=== PATIENT | female | born 1950 | race Caucasian/White ===

== ENCOUNTER → 2017-05-04 | Outpatient (REF) | payer MEDICARE, OTHER | LOC: M LAB REF 16:07 | PROVIDERS: ATTEND Internal Medicine | DX: K57.11 Diverticulosis of small intestine without perforation or abscess with bleeding (principal); D72.9 Disorder of white blood cells, unspecified ==

== ENCOUNTER → 2019-04-25 | Outpatient (REF) | payer MEDICARE, OTHER ==
[2019-04-25 18:05] LABS: PERCENT SATURATION 26.5 % (13.2-45.0)
[2019-04-27 14:10] LABS: ANTINUCLEAR ANTIBODIES DIRECT Negative (Negative)
== END ==
LOC: M LAB REF 16:55
PROVIDERS: ATTEND Internal Medicine
DX: L66.8 Other cicatricial alopecia (principal)

== ENCOUNTER → 2021-03-13 | Outpatient (CLI) | payer MEDICARE, OTHER ==
--- NOTE | 2021-03-13 14:29 | REP ---
INDICATION: Assess stenosis COMPARISON: 05/07/2009 TECHNIQUE: Carotid ultrasonography was performed bilaterally FINDINGS: A moderate amount of patchy echogenic material is seen along the carotid arterial rodriguez bilaterally. Right: CCA systolic: 76.4 centimeters/second CCA diastolic: 14.3 centimeters/second ICA systolic: 78.8 centimeters/second ICA diastolic: 22.0 centimeters/second ICA CCA ratio: 1.03 Left: CCA systolic: 89.5 centimeters/second CCA diastolic: 18.1 centimeters/second ICA systolic: 95.5 centimeters/second ICA diastolic: 22.0 centimeters/second ICA CCA ratio: 1.67 Vertebral artery: Right: Antegrade left: Antegrade IMPRESSION: According to the SRU criteria there is less than 50% stenosis of the internal carotid artery bilaterally. <Electronically signed by Jericho Roque > 03/13/21 1735
== END ==
LOC: M RAD 13:37
PROVIDERS: ATTEND Internal Medicine
DX: I65.23 Occlusion and stenosis of bilateral carotid arteries (principal)

== ENCOUNTER 2021-12-24 12:39 | Emergency (ER) | payer MEDICARE, OTHER ==
[~2021-12-24] VITALS: Ht 157.5 cm; Wt 73.2 kg
[2021-12-24] MEDS ORDERED: CAND32TA (12:49)
[2021-12-24] MEDS ORDERED: EZET1TAB96 (12:49)
[2021-12-24 15:15] VITALS: BP 180/79
[2021-12-24 16:52] LABS: BASO # 0.1 10^3/uL (0.0-0.2); BASO % 0.9 % (0.0-1.0); EOS % 0.1 % (0.0-3.0); HEMATOCRIT 37.4 % (36.0-47.0); HEMOGLOBIN 11.9 g/dl (12.0-15.5); LYMPH # 2.4 10^3/uL (1.5-5.0); LYMPH % 27.6 % (24.0-44.0); MEAN CORPUSCULAR HEMOGLOBIN 28.2 pg (27.0-33.0); MEAN CORPUSCULAR HGB CONC 31.8 g/dl (32.0-36.5); MEAN CORPUSCULAR VOLUME 88.6 fl (80.0-96.0); MONO # 0.6 10^3/uL (0.0-0.8); MONO % 6.4 % (2.0-8.0); NEUTROPHILS # 5.6 10^3/uL (1.5-8.5); NEUTROPHILS % 64.8 % (36.0-66.0); PLATELET COUNT, AUTOMATED 252 10^3/uL (150-450); RED BLOOD COUNT 4.22 10^6/uL (4.00-5.40); WHITE BLOOD COUNT 8.7 10^3/uL (4.0-10.0)
[2021-12-24 17:18] LABS: ALT/SGPT 22 U/L (12-78); BILIRUBIN,DIRECT < 0.1 MG/DL (0.0-0.2); BILIRUBIN,TOTAL 0.3 MG/DL (0.2-1.0); TOTAL PROTEIN 7.1 GM/DL (6.4-8.2)
[2021-12-24] MEDS ORDERED: amLODIPine 5 MG TAB PO ONE (17:30)
[2021-12-24 17:52] VITALS: BP 192/88
[2021-12-24] MEDS ORDERED: AMLO1TAB24 PO (19:04)
== END 2021-12-24 18:45 | disposition home or self-care (01) ==
LOC: M ED 12:39
DX: R04.0 Epistaxis (principal); I10 Essential (primary) hypertension; E78.5 Hyperlipidemia, unspecified

== ENCOUNTER → 2022-01-20 | Outpatient (REF) | payer MEDICARE, OTHER ==
[~2022-01-20] MED LIST: AMLO1TAB24 PO; CAND32TA; EZET1TAB96
== END ==
LOC: M LAB REF 12:03
PROVIDERS: ATTEND Internal Medicine
DX: I10 Essential (primary) hypertension (principal)

== ENCOUNTER → 2022-04-29 | Outpatient (CLI) | payer MEDICARE, OTHER ==
[~2022-04-29] MED LIST changes: -CAND32TA; +CAND32TA2
== END ==
LOC: M SLEEP HO 11:44
PROVIDERS: ATTEND Family Medicine
DX: G47.33 Obstructive sleep apnea (adult) (pediatric) (principal)

== ENCOUNTER → 2022-05-07 | Outpatient (REF) | payer MEDICARE, OTHER ==
[2022-05-10 13:08] LABS: PERCENT SATURATION 18.3 % (13.2-45.0)
== END ==
LOC: M LAB REF 12:24
PROVIDERS: ATTEND Internal Medicine
DX: D64.9 Anemia, unspecified (principal)

== ENCOUNTER 2022-07-12 20:24 | Inpatient (IN) | payer MEDICARE, OTHER ==
[~2022-07-12] VITALS: Ht 157.5 cm; Wt 74.5 kg
[2022-07-12] MEDS ORDERED: NS 1,000 ML IV ONE (20:45)
[2022-07-12 20:55] LABS: BASO % 0.3 % (0.0-1.0); EOS # 0.1 10^3/uL (0.0-0.5); EOS % 2.1 % (0.0-3.0); HEMATOCRIT 38.3 % (36.0-47.0); HEMOGLOBIN 13.6 g/dl (12.0-15.5); LYMPH # 0.9 10^3/uL (1.5-5.0); MEAN CORPUSCULAR HEMOGLOBIN 29.1 pg (27.0-33.0); MEAN CORPUSCULAR HGB CONC 35.5 g/dl (32.0-36.5); MONO # 0.9 10^3/uL (0.0-0.8); MONO % 13.4 % (2.0-8.0); NEUTROPHILS # 4.7 10^3/uL (1.5-8.5); NEUTROPHILS % 70.2 % (36.0-66.0); PLATELET COUNT, AUTOMATED 252 10^3/uL (150-450); RED BLOOD COUNT 4.67 10^6/uL (4.00-5.40); WHITE BLOOD COUNT 6.7 10^3/uL (4.0-10.0)
[2022-07-12 20:57] LABS: VENOUS BASE EXCESS 1.6 (-2.0-2.0); VENOUS HCO3 25.4 MEQ/L (23.0-27.0); VENOUS O2 SATURATION 95.5 % (60.0-80.0); VENOUS PARTIAL PRESSURE CO2 37.2 mmHg (38.0-50.0); VENOUS PARTIAL PRESSURE O2 77.2 mmHg (30.0-50.0); VENOUS PH 7.452 UNITS (7.330-7.430); VENOUS STANDARD HCO3 25.9 MEQ/L; VENOUS TOTAL CO2 26.5 MEQ/L (24.0-28.0)
[2022-07-12 21:41] LABS: MB/CK RELATIVE INDEX 2.82 (< OR =4)
[2022-07-12 21:54] LABS: BLOOD UREA NITROGEN 14 MG/DL (7-18); CALCIUM LEVEL 9.4 MG/DL (8.8-10.2); CARBON DIOXIDE LEVEL 24 MEQ/L (21-32); CHLORIDE LEVEL 81 MEQ/L (98-107); CREATININE FOR GFR 0.79 MG/DL (0.55-1.30); GLOMERULAR FILTRATION RATE > 60.0 (>39); GLUCOSE, FASTING 150 MG/DL (70-100); POTASSIUM SERUM 3.7 MEQ/L (3.5-5.1); SODIUM LEVEL 115 MEQ/L (136-145)
[2022-07-12 23:31] LABS: RSV AMPLIFICATION NEGATIVE (NEGATIVE)
[2022-07-13] VITALS (8 sets, daily range): BP systolic 133–171; BP diastolic 63–84
[2022-07-13 00:03] LABS: CK-MB VALUE MASS 1.6 NG/ML (<3.6); MB/CK RELATIVE INDEX 1.65 (< OR =4)
[2022-07-13] MEDS ORDERED: GLUCOSE 4GM CHEW TABLET PO PRN (02:45)
[2022-07-13] MEDS: ACETAMINOPHEN TAB 650MG DOSE (2X325MG) PO PRN ×2 (02:45→12:18)
[2022-07-13] MEDS ORDERED: NS 1,000 ML IV SCH (02:45)
[2022-07-13] MEDS ORDERED: GLUCAGON INJ 1MG VIAL SC PRN (02:45)
[2022-07-13] MEDS ORDERED: NS 500 ML IV ONE (02:45)
[2022-07-13] MEDS ORDERED: DEXTROSE 50% 50 ML SYRINGE IV PRN (02:45)
[2022-07-13] MEDS ORDERED: hydrALAZINE 20MG/ML 1ML VIAL (J0360 PER 20MG) IV PRN (04:35)
[2022-07-13 04:46] LABS: INR 0.96; PROTHROMBIN TIME 13.2 SECONDS (12.7-14.5)
[2022-07-13 04:47] LABS: PARTIAL THROMBOPLASTIN TIME 32.2 SECONDS (25.9-37.0)
[2022-07-13 04:50] LABS: D-DIMER QUANT 532.71 ng/ml (<500)
[2022-07-13] MEDS ORDERED: **hydrALAZINE** 10 MG TAB PO PRN (04:55)
[2022-07-13 05:18] LABS: ALBUMIN 3.4 GM/DL (3.2-5.2); ALT/SGPT 25 U/L (12-78); BILIRUBIN,DIRECT < 0.1 MG/DL (0.0-0.2); BILIRUBIN,TOTAL 0.2 MG/DL (0.2-1.0); BLOOD UREA NITROGEN 12 MG/DL (7-18); C REACTIVE PROTEIN QUANTITATIV 0.54 MG/DL (0.00-0.30); CALCIUM LEVEL 8.3 MG/DL (8.8-10.2); CARBON DIOXIDE LEVEL 27 MEQ/L (21-32); CHLORIDE LEVEL 85 MEQ/L (98-107); CREATININE FOR GFR 0.57 MG/DL (0.55-1.30); FERRITIN 465 NG/ML (8-252); GLOMERULAR FILTRATION RATE > 60.0 (>39); GLUCOSE, FASTING 114 MG/DL (70-100); LDH LACTATE DEHYDROGENASE 241 U/L (84-246); MAGNESIUM LEVEL 1.8 MG/DL (1.8-2.4); NT-PRO BNP 1495 PG/ML (<125); POTASSIUM SERUM 3.3 MEQ/L (3.5-5.1); SODIUM LEVEL 122 MEQ/L (136-145); TOTAL PROTEIN 6.7 GM/DL (6.4-8.2)
[2022-07-13] MEDS ORDERED: REMDESIVIR 200 MG in NS 250 ML IV ONE (06:30)
[2022-07-13] MEDS ORDERED: CLOB0.057 TOP (06:35)
[2022-07-13] MEDS ORDERED: EZET1TAB96 PO (06:35)
[2022-07-13] MEDS ORDERED: RA T500C2 PO (06:35)
[2022-07-13] MEDS ORDERED: VITA100093 PO (06:35)
[2022-07-13] MEDS ORDERED: CAND32TA2 PO (06:35)
[2022-07-13] MEDS ORDERED: ZINC50TA14 PO (06:35)
[2022-07-13] MEDS ORDERED: VITA500T41 PO (06:35)
[2022-07-13] MEDS ORDERED: HOME MED LIST COMPLETE! XX SCH (06:40)
[2022-07-13] MEDS: INSULIN LISPRO (NovoLOG) PER UNIT SC SCH ×4 (07:30→20:29)
[2022-07-13] MEDS ORDERED: POTASSIUM CHLORIDE 10% LIQ 20 MEQ/15 ML UDC PO ONE (07:45)
[2022-07-13 08:19] LABS: BLOOD UREA NITROGEN 12 MG/DL (7-18); CALCIUM LEVEL 7.9 MG/DL (8.8-10.2); CARBON DIOXIDE LEVEL 24 MEQ/L (21-32); CHLORIDE LEVEL 89 MEQ/L (98-107); CREATININE FOR GFR 0.59 MG/DL (0.55-1.30); GLOMERULAR FILTRATION RATE > 60.0 (>39); GLUCOSE, FASTING 96 MG/DL (70-100); POTASSIUM SERUM 3.3 MEQ/L (3.5-5.1); SODIUM LEVEL 120 MEQ/L (136-145)
[2022-07-13] MEDS ORDERED: SODIUM CHLORIDE 0.9% INJ 10 ML SYR IV ONE (08:30)
[2022-07-13] MEDS ORDERED: BARICITINIB 2MG TABLET (OLUMIANT) FOR EUA PO SCH (09:00)
[2022-07-13 09:41] LABS: OSMOLALITY SERUM 247 MOSM/KG (280-301)
[2022-07-13] MEDS: ENOXAPARIN 40MG/0.4ML SYRINGE (J1650 PER 10MG) SC SCH (09:54)
[2022-07-13] MEDS ORDERED: ALBUTEROL SULFATE 2.5 MG/0.5 ML INH NEB SOLN INH PRN (11:25)
[2022-07-13] MEDS ORDERED: diphenhydrAMINE 50MG/ML VIAL (J1200) IV PRN (11:25)
[2022-07-13] MEDS ORDERED: methylPREDNISolone 125MG 2ML VIAL IV PRN (11:25)
[2022-07-13] MEDS ORDERED: ALBUTEROL 90 MCG/ACT 8GM HFA INHALER INH PRN (11:25)
[2022-07-13] MEDS ORDERED: EPINEPHrine INJ 1 MG/ML 1ML AMP IM PRN (11:25)
[2022-07-13] MEDS: **hydrALAZINE HCL** 25 MG TAB PO SCH ×2 (12:17→16:59)
[2022-07-13 13:06] LABS: BLOOD UREA NITROGEN 11 MG/DL (7-18); CALCIUM LEVEL 8.3 MG/DL (8.8-10.2); CARBON DIOXIDE LEVEL 27 MEQ/L (21-32); CHLORIDE LEVEL 92 MEQ/L (98-107); CREATININE FOR GFR 0.64 MG/DL (0.55-1.30); GLOMERULAR FILTRATION RATE > 60.0 (>39); GLUCOSE, FASTING 106 MG/DL (70-100); POTASSIUM SERUM 3.7 MEQ/L (3.5-5.1); SODIUM LEVEL 126 MEQ/L (136-145)
[2022-07-13 13:27] LABS: CREATININE,RANDOM URINE 22.2 MG/DL
[2022-07-13] MEDS ORDERED: D5W 1000ML IV ONE (13:50)
[2022-07-13] MEDS ORDERED: D5W 1,000 ML IV SCH (15:00)
[2022-07-13 16:26] LABS: BLOOD UREA NITROGEN 10 MG/DL (7-18); CARBON DIOXIDE LEVEL 26 MEQ/L (21-32); CHLORIDE LEVEL 92 MEQ/L (98-107); CREATININE FOR GFR 0.59 MG/DL (0.55-1.30); GLOMERULAR FILTRATION RATE > 60.0 (>39); GLUCOSE, FASTING 109 MG/DL (70-100); POTASSIUM SERUM 3.4 MEQ/L (3.5-5.1); SODIUM LEVEL 123 MEQ/L (136-145)
[2022-07-13] MEDS ORDERED: BEBTELOVIMAB 175MG 2ML VIAL (EUA) IV ONE (17:00)
[2022-07-13 20:08] LABS: BLOOD UREA NITROGEN 10 MG/DL (7-18); CALCIUM LEVEL 8.3 MG/DL (8.8-10.2); CARBON DIOXIDE LEVEL 24 MEQ/L (21-32); CHLORIDE LEVEL 94 MEQ/L (98-107); GLOMERULAR FILTRATION RATE > 60.0 (>39); GLUCOSE, FASTING 101 MG/DL (70-100); POTASSIUM SERUM 3.9 MEQ/L (3.5-5.1); SODIUM LEVEL 125 MEQ/L (136-145)
[2022-07-14 00:36] LABS: BLOOD UREA NITROGEN 12 MG/DL (7-18); CALCIUM LEVEL 8.3 MG/DL (8.8-10.2); CARBON DIOXIDE LEVEL 25 MEQ/L (21-32); CHLORIDE LEVEL 97 MEQ/L (98-107); CREATININE FOR GFR 0.59 MG/DL (0.55-1.30); GLOMERULAR FILTRATION RATE > 60.0 (>39); GLUCOSE, FASTING 87 MG/DL (70-100); POTASSIUM SERUM 3.2 MEQ/L (3.5-5.1); SODIUM LEVEL 128 MEQ/L (136-145)
[2022-07-14] MEDS ORDERED: D5W 1,000 ML IV SCH (02:25)
[2022-07-14] MEDS ORDERED: POTASSIUM CHLORIDE 10% LIQ 20 MEQ/15 ML UDC PO ONE (02:30)
[2022-07-14] MEDS: MAG SULF 1GM/100ML (MAG RUN) 1 GM in IV 1 EA IV SCH ×2 (02:57→04:55)
[2022-07-14] MEDS: KCL 10MEQ/100ML SWI (KRUN) 10 MEQ in IV 1 EA IV SCH ×4 (04:01→08:48)
[2022-07-14 05:38] LABS: BLOOD UREA NITROGEN 12 MG/DL (7-18); CALCIUM LEVEL 8.6 MG/DL (8.8-10.2); CARBON DIOXIDE LEVEL 26 MEQ/L (21-32); CHLORIDE LEVEL 97 MEQ/L (98-107); CREATININE FOR GFR 0.58 MG/DL (0.55-1.30); GLOMERULAR FILTRATION RATE > 60.0 (>39); GLUCOSE, FASTING 124 MG/DL (70-100); POTASSIUM SERUM 3.4 MEQ/L (3.5-5.1); SODIUM LEVEL 127 MEQ/L (136-145)
[2022-07-14 06:00] VITALS: BP 148/74
[2022-07-14] MEDS ORDERED: REMDESIVIR 100 MG in NS 250 ML IV SCH (06:00)
[2022-07-14] MEDS: **hydrALAZINE HCL** 25 MG TAB PO SCH ×4 (06:00→18:00)
[2022-07-14] MEDS ORDERED: SODIUM CHLORIDE 0.9% INJ 10 ML SYR IV SCH (07:00)
[2022-07-14 08:30] LABS: ALBUMIN 3.6 GM/DL (3.2-5.2); ALT/SGPT 26 U/L (12-78); BILIRUBIN,DIRECT < 0.1 MG/DL (0.0-0.2); BILIRUBIN,TOTAL 0.2 MG/DL (0.2-1.0); BLOOD UREA NITROGEN 10 MG/DL (7-18); CALCIUM LEVEL 8.8 MG/DL (8.8-10.2); CARBON DIOXIDE LEVEL 25 MEQ/L (21-32); CHLORIDE LEVEL 97 MEQ/L (98-107); CREATININE FOR GFR 0.57 MG/DL (0.55-1.30); GLOMERULAR FILTRATION RATE > 60.0 (>39); GLUCOSE, FASTING 98 MG/DL (70-100); POTASSIUM SERUM 4.5 MEQ/L (3.5-5.1); SODIUM LEVEL 128 MEQ/L (136-145); TOTAL PROTEIN 6.7 GM/DL (6.4-8.2)
[2022-07-14] MEDS: INSULIN LISPRO (NovoLOG) PER UNIT SC SCH ×4 (08:40→21:00)
[2022-07-14] MEDS: ENOXAPARIN 40MG/0.4ML SYRINGE (J1650 PER 10MG) SC SCH (08:48)
[2022-07-14 10:00] VITALS: BP 138/74
[2022-07-14 12:50] LABS: MAGNESIUM LEVEL 2.7 MG/DL (1.8-2.4)
[2022-07-14 13:40] LABS: BASO % 0.6 % (0.0-1.0); HEMATOCRIT 36.2 % (36.0-47.0); HEMOGLOBIN 12.5 g/dl (12.0-15.5); LYMPH # 1.1 10^3/uL (1.5-5.0); LYMPH % 29.9 % (24.0-44.0); MEAN CORPUSCULAR HEMOGLOBIN 29.6 pg (27.0-33.0); MEAN CORPUSCULAR HGB CONC 34.5 g/dl (32.0-36.5); MEAN CORPUSCULAR VOLUME 85.6 fl (80.0-96.0); MONO # 0.5 10^3/uL (0.0-0.8); MONO % 15.3 % (2.0-8.0); NEUTROPHILS # 1.9 10^3/uL (1.5-8.5); NEUTROPHILS % 53.9 % (36.0-66.0); PLATELET COUNT, AUTOMATED 229 10^3/uL (150-450); RED BLOOD COUNT 4.23 10^6/uL (4.00-5.40); WHITE BLOOD COUNT 3.5 10^3/uL (4.0-10.0)
[2022-07-14 14:00] VITALS: BP 132/80
[2022-07-14 14:24] LABS: BLOOD UREA NITROGEN 10 MG/DL (7-18); CALCIUM LEVEL 8.9 MG/DL (8.8-10.2); CARBON DIOXIDE LEVEL 28 MEQ/L (21-32); CHLORIDE LEVEL 99 MEQ/L (98-107); CREATININE FOR GFR 0.59 MG/DL (0.55-1.30); GLOMERULAR FILTRATION RATE > 60.0 (>39); GLUCOSE, FASTING 96 MG/DL (70-100); POTASSIUM SERUM 4.3 MEQ/L (3.5-5.1); SODIUM LEVEL 131 MEQ/L (136-145)
[2022-07-14] MEDS ORDERED: D5W 1,000 ML IV ONE (15:45)
[2022-07-14 18:00] VITALS: BP 140/78
[2022-07-14 19:55] LABS: BLOOD UREA NITROGEN 10 MG/DL (7-18); CALCIUM LEVEL 8.6 MG/DL (8.8-10.2); CARBON DIOXIDE LEVEL 26 MEQ/L (21-32); CHLORIDE LEVEL 96 MEQ/L (98-107); CREATININE FOR GFR 0.65 MG/DL (0.55-1.30); GLOMERULAR FILTRATION RATE > 60.0 (>39); GLUCOSE, FASTING 137 MG/DL (70-100); POTASSIUM SERUM 3.5 MEQ/L (3.5-5.1); SODIUM LEVEL 126 MEQ/L (136-145)
[2022-07-14 21:59] VITALS: BP 158/74
[2022-07-15 01:33] LABS: BLOOD UREA NITROGEN 12 MG/DL (7-18); CALCIUM LEVEL 8.4 MG/DL (8.8-10.2); CARBON DIOXIDE LEVEL 25 MEQ/L (21-32); CHLORIDE LEVEL 100 MEQ/L (98-107); CREATININE FOR GFR 0.72 MG/DL (0.55-1.30); GLOMERULAR FILTRATION RATE > 60.0 (>39); GLUCOSE, FASTING 93 MG/DL (70-100); POTASSIUM SERUM 3.7 MEQ/L (3.5-5.1); SODIUM LEVEL 132 MEQ/L (136-145)
[2022-07-15 02:00] VITALS: BP 125/70
[2022-07-15 06:00] VITALS: BP 138/67
[2022-07-15] MEDS: **hydrALAZINE HCL** 25 MG TAB PO SCH ×3 (06:00→12:00)
[2022-07-15 07:00] LABS: BLOOD UREA NITROGEN 13 MG/DL (7-18); CALCIUM LEVEL 8.7 MG/DL (8.8-10.2); CARBON DIOXIDE LEVEL 25 MEQ/L (21-32); CHLORIDE LEVEL 98 MEQ/L (98-107); GLOMERULAR FILTRATION RATE > 60.0 (>39); GLUCOSE, FASTING 96 MG/DL (70-100); MAGNESIUM LEVEL 2.3 MG/DL (1.8-2.4); POTASSIUM SERUM 3.9 MEQ/L (3.5-5.1); SODIUM LEVEL 130 MEQ/L (136-145)
[2022-07-15] MEDS: INSULIN LISPRO (NovoLOG) PER UNIT SC SCH ×2 (07:21→12:00)
[2022-07-15] MEDS: ENOXAPARIN 40MG/0.4ML SYRINGE (J1650 PER 10MG) SC SCH (08:43)
[2022-07-15] MEDS ORDERED: AMLO10TA PO (09:47)
[2022-07-15 12:00] VITALS: BP 145/79
== END 2022-07-15 12:44 | disposition home or self-care (01) | DRG 640 ==
LOC: EDBD 20:24 → M ED 20:24 → M ED INP 07-13 02:43 → M 4MAIN 07-13 06:12 → M MSPAV 07-13 16:24
PROVIDERS: ADMIT Internal Medicine; ATTEND Internal Medicine Nephrology
PROC: B246ZZZ Ultrasonography of Right and Left Heart (ICD-10-PCS; principal; 2022-07-13)
PROC: XW033E5 Introduction of Remdesivir Anti-infective into Peripheral Vein, Percutaneous Approach, New Technology Group 5 (ICD-10-PCS; 2022-07-13)
DX: E87.1 Hypo-osmolality and hyponatremia (principal); U07.1 COVID-19; G93.41 Metabolic encephalopathy; I10 Essential (primary) hypertension; E78.00 Pure hypercholesterolemia, unspecified; Z90.79 Acquired absence of other genital organ(s); T47.8X5A Adverse effect of other agents primarily affecting gastrointestinal system, initial encounter; R73.9 Hyperglycemia, unspecified; E07.9 Disorder of thyroid, unspecified; Z79.899 Other long term (current) drug therapy; R55 Syncope and collapse

== ENCOUNTER → 2023-03-14 | Outpatient (CLI) | payer MEDICARE, OTHER ==
[~2023-03-14] MED LIST changes: +AMLO10TA PO; +CAND32TA2 PO; +CLOB0.057 TOP; +EZET1TAB96 PO; +RA T500C2 PO; +VITA100093 PO; +VITA500T41 PO; +ZINC50TA14 PO
== END ==
LOC: M WHC 13:35
PROVIDERS: ATTEND Internal Medicine
DX: I65.23 Occlusion and stenosis of bilateral carotid arteries (principal)

== ENCOUNTER → 2023-12-21 | Outpatient (REF) | payer MEDICARE, OTHER ==
[2023-12-22 13:13] LABS: FERRITIN 90.9 NG/ML (7.3-270.7)
[2023-12-22 13:14] LABS: PERCENT SATURATION 18.5 % (13.2-45.0)
== END ==
LOC: M LAB REF 12:21
PROVIDERS: ATTEND Internal Medicine
DX: D50.9 Iron deficiency anemia, unspecified (principal)

== ENCOUNTER → 2025-01-21 | Outpatient (REF) | payer MEDICARE, OTHER | LOC: M LAB REF 17:55 | PROVIDERS: ATTEND Internal Medicine | DX: R10.9 Unspecified abdominal pain (principal) ==

== ENCOUNTER → 2025-01-31 | Outpatient (CLI) | payer MEDICARE, OTHER | LOC: M WHC 13:20 | PROVIDERS: ATTEND Internal Medicine | DX: R09.89 Other specified symptoms and signs involving the circulatory and respiratory systems (principal) ==

== ENCOUNTER → 2025-01-31 | Outpatient (CLI) | payer MEDICARE, OTHER ==
[~2025-01-31] MED LIST changes: +ISOVUE-370 76% 100ML VIAL ONE
== END ==
LOC: M PLAIMG 13:20
PROVIDERS: ATTEND Internal Medicine
DX: R10.9 Unspecified abdominal pain (principal); R09.89 Other specified symptoms and signs involving the circulatory and respiratory systems
CPT/HCPCS: 74177; 93880; Q9967

== ENCOUNTER → 2025-02-07 | Outpatient (CLI) | payer MEDICARE, OTHER ==
[~2025-02-07] MED LIST changes: -ISOVUE-370 76% 100ML VIAL ONE
== END ==
LOC: M CARPUL 11:45
PROVIDERS: ATTEND Internal Medicine Cardiovascular Disease
DX: R06.02 Shortness of breath (principal); R94.31 Abnormal electrocardiogram [ECG] [EKG]

== ENCOUNTER → 2025-03-19 | Outpatient (CLI) | payer MEDICARE, OTHER | LOC: M PLAIMG 13:27 | PROVIDERS: ATTEND Internal Medicine | DX: R06.02 Shortness of breath (principal) ==

== ENCOUNTER → 2025-03-19 | Outpatient (CLI) | payer MEDICARE, OTHER | LOC: M PLAIMG 12:30 | PROVIDERS: ATTEND Internal Medicine Cardiovascular Disease | DX: I35.9 Nonrheumatic aortic valve disorder, unspecified (principal); R06.02 Shortness of breath ==

== ENCOUNTER → 2025-04-16 | Outpatient (CLI) | payer MEDICARE, OTHER ==
[~2025-04-16] MED LIST changes: +AMLO-751 PO; -AMLO10TA PO
== END ==
LOC: M RAD 09:55
PROVIDERS: ATTEND Internal Medicine
DX: R06.00 Dyspnea, unspecified (principal); R91.8 Other nonspecific abnormal finding of lung field

== ENCOUNTER → 2025-07-15 | Outpatient (REF) | payer OTHER ==
[~2025-07-15] MED LIST changes: -RA T500C2 PO; +TURM500C10 PO
[2025-07-15 18:45] LABS: IRON (FE) 69.0 UG/DL (50-170); PERCENT SATURATION 22.7 % (13.2-45.0)
== END ==
LOC: M LAB REF 17:46
PROVIDERS: ATTEND Internal Medicine
DX: D50.9 Iron deficiency anemia, unspecified (principal); R53.83 Other fatigue

== ENCOUNTER → 2025-07-16 | Outpatient (CLI) | payer OTHER ==
[~2025-07-16] MED LIST changes: +METHACHOLINE KIT (6 VIAL.NEB PREMIX) INH ONE
== END ==
LOC: M CARPUL 10:39
PROVIDERS: ATTEND Physician Assistant
DX: R06.00 Dyspnea, unspecified (principal)
CPT/HCPCS: 94070; 95070; J7674

== ENCOUNTER → 2025-08-05 | Outpatient (CLI) | payer MEDICARE, OTHER ==
[~2025-08-05] MED LIST changes: -METHACHOLINE KIT (6 VIAL.NEB PREMIX) INH ONE
== END ==
LOC: M PLAIMG 13:18
PROVIDERS: ATTEND Physician Assistant
DX: R91.8 Other nonspecific abnormal finding of lung field (principal); K76.0 Fatty (change of) liver, not elsewhere classified

== ENCOUNTER → 2025-09-16 | Outpatient (REF) | payer MEDICARE, OTHER | LOC: M LAB REF 12:15 | PROVIDERS: ATTEND Internal Medicine | DX: D64.9 Anemia, unspecified (principal); R53.83 Other fatigue ==

== ENCOUNTER 2025-09-25 22:08 | Emergency (ER) | payer MEDICARE, OTHER ==
[~2025-09-25] VITALS: Ht 157.5 cm; Wt 79.5 kg
[2025-09-26] MEDS: LORazepam 0.5 MG TAB PO STA (01:03)
[2025-09-26 01:25] VITALS: BP 142/71; TEMP 96.1; O2SAT 99
== END 2025-09-26 01:27 | disposition home or self-care (01) ==
LOC: M ED 22:08
DX: I10 Essential (primary) hypertension (principal); F41.9 Anxiety disorder, unspecified; K76.0 Fatty (change of) liver, not elsewhere classified; E78.5 Hyperlipidemia, unspecified; J45.909 Unspecified asthma, uncomplicated; Z86.16 Personal history of COVID-19; Z87.01 Personal history of pneumonia (recurrent); Z79.899 Other long term (current) drug therapy; J45.20 Mild intermittent asthma, uncomplicated; Z79.51 Long term (current) use of inhaled steroids; Z79.82 Long term (current) use of aspirin; Z91.048 Other nonmedicinal substance allergy status
CPT/HCPCS: 94010; 99284; G0463